=== PATIENT | male | born 1955 | race Caucasian/White ===

== ENCOUNTER 2017-09-08 06:19 | Observation (INO) | payer BC ==
[2017-09-07 11:34] VITALS: BP 117/92
[2017-09-07 12:23] LABS: HEMATOCRIT 42.3 % (39.2-51.8); HEMOGLOBIN 14.4 g/dL (13.7-18.0); WHITE BLOOD COUNT 10.1 x10^3/uL (3.4-10)
[2017-09-07 12:28] LABS: ASPARTATE AMINO TRANSFERASE 14 U/L (15-37); BLOOD UREA NITROGEN 9 mg/dL (7-18)
[~2017-09-08] VITALS: Ht 182.9 cm; Wt 70.0 kg
[~2017-09-08 06:19] MED LIST: APIX5TAB PO; DIGO125T PO; METO25TA35 PO; SOTA120T26 PO
[2017-09-08] MEDS ORDERED: SODIUM CHLORIDE 0.9% 1,000 ML IV SCH ×2 (06:31→07:00)
[2017-09-08] MEDS ORDERED: FENTANYL PF 250 MCG/5ML ONE (07:38)
[2017-09-08] MEDS ORDERED: MIDAZOLAM 1 MG/ML, 5ML ONE (07:38)
[2017-09-08] MEDS ORDERED: ISOPROTERENOL 0.2MG/ML, 5ML ONE (07:47)
[2017-09-08] MEDS ORDERED: HEPARIN 1,000 UNITS/ML, 10ML ONE (07:47)
[2017-09-08] MEDS ORDERED: LIDOCAINE 2%, 20ML ONE (07:47)
[2017-09-08] MEDS ORDERED: ROCURONIUM 10 MG/ML,10ML ONE (08:00)
[2017-09-08] MEDS ORDERED: PROPOFOL 10 MG/ML, 20ML ONE (08:00)
[2017-09-08] MEDS ORDERED: OXYcodone 5 MG/5 ML ORAL.SOL UDC PO PRN (08:00)
[2017-09-08] MEDS ORDERED: ALBUTEROL SULFATE 2.5 MG/3 ML NPPB PRN (08:00)
[2017-09-08] MEDS ORDERED: MIDAZOLAM 1 MG/ML, 2ML IV PRN (08:00)
[2017-09-08] MEDS ORDERED: DEXAMETHASONE 4 MG/ML, 1ML ONE (08:00)
[2017-09-08] MEDS ORDERED: LABETALOL 5MG/ML, 20ML IV PRN (08:00)
[2017-09-08] MEDS ORDERED: HYDROmorphone 1 MG/ML, 1ML IV PRN (08:00)
[2017-09-08] MEDS ORDERED: SUCCINYLCHOLINE 20 MG/ML, 10ML ONE (08:00)
[2017-09-08] MEDS ORDERED: VASOPRESSIN 20 UNIT/ML, 1ML ONE (08:00)
[2017-09-08] MEDS ORDERED: FENTANYL PF 100 MCG/2ML IV PRN (08:00)
[2017-09-08] MEDS ORDERED: MEPERIDINE/PF 25MG/0.5ML IVPush PRN (08:00)
[2017-09-08] MEDS ORDERED: ONDANSETRON 2MG/ML, 2ML ONE (08:00)
[2017-09-08] MEDS ORDERED: hydrALAzine 20 MG/ML, 1ML IV PRN (08:00)
[2017-09-08] MEDS ORDERED: PROMETHAZINE 25 MG/ML, 1ML IV PRN (08:00)
[2017-09-08] MEDS ORDERED: EPHEDRINE 50 MG/ML, 1ML ONE (08:00)
[2017-09-08] MEDS ORDERED: ONDANSETRON 2MG/ML, 2ML IVPush PRN (08:00)
[2017-09-08] MEDS ORDERED: ACETAMINOPHEN 325 MG TABLET PO PRN ×2 (08:00→11:30)
[2017-09-08] MEDS ORDERED: PROTAMINE SULFATE 10 MG/ML, 5ML ONE (11:15)
[2017-09-08] MEDS ORDERED: APIXABAN 5 MG TABLET ONE (11:17)
[2017-09-08] MEDS ORDERED: ZOLPIDEM 5MG TABLET PO PRN (11:30)
[2017-09-08] MEDS: APIXABAN 5 MG TABLET PO SCH ×2 (12:40→19:46)
[2017-09-08 13:15] VITALS: BP 114/80
[2017-09-08 18:50] VITALS: BP 106/68
[2017-09-08] MEDS ORDERED: SOTALOL 120MG TABLET ONE (19:42)
[2017-09-08] MEDS: SOTALOL 120MG TABLET PO SCH (19:46)
[2017-09-09 03:07] VITALS: BP 107/72
[2017-09-09 06:57] VITALS: BP 116/76
[2017-09-09] MEDS ORDERED: ACET325T14 PO (08:11)
[2017-09-09] MEDS: SOTALOL 120MG TABLET PO SCH (10:03)
[2017-09-09] MEDS: APIXABAN 5 MG TABLET PO SCH (10:03)
== END 2017-09-09 13:37 | disposition home or self-care (01) ==
LOC: CACL 06:19 → CCU 11:27 → 5SO 13:22 → DCLOUNGE 09-09 12:58
PROVIDERS: ADMIT Internal Medicine Cardiovascular Disease; ATTEND Internal Medicine Cardiovascular Disease
DX: I48.91 Unspecified atrial fibrillation (principal); I48.92 Unspecified atrial flutter
CPT/HCPCS: 36415; 80053; 85025; 85347; 93306; 93312; 93321; 93325; 93613; 93655; 93656; 93662; C1730; C1731; C1732; C1759; C1766; C1893; C1894; G0378; J0330; J1100; J1644; J2250; J2405; J2704; J2720; J3010; J3490